=== PATIENT | female | born 1980 | race Caucasian/White ===

== ENCOUNTER 2016-08-31 11:34 | Emergency (ER) | payer OTHER ==
[2016-08-31 11:40] VITALS: BP 123/65; BMI 19.2
[2016-08-31 12:34] LABS: BILIRUBIN,URINE NEGATIVE (NEGATIVE); BLOOD/HEMOGLOBIN,URINE 5+ (NEGATIVE); GLUCOSE, URINE NEGATIVE (NEGATIVE); KETONES,URINE NEGATIVE (NEGATIVE); LEUKOCYTE ESTERASE ,URINE 1+ (NEGATIVE); NITRITES,URINE NEGATIVE (NEGATIVE); PROTEIN,URINE 2+ (NEGATIVE); UROBILINOGEN,URINE NORMAL (NORMAL)
--- NOTE | 2016-08-31 12:39 | DR.GENAD ---
HPI - PCP Primary Care Physician: nfd - HPI Comment HPI Comment: IN [place] ED YESTERDAY FOR LT FLANK AND BACK. EVALUATED. NO KIDNEY STONE. PAIN MAINLY LOWER BACK AND IS PERSISTANT. NO FEVER. - Complaint/Symptoms Chief Complaint Doctors Comments: BACK PAIN Chief Complaint:: patient was seen in [facility] saturday and saturday night in [place] and yesterday in [place] for left kidney pain that makes it hard for her to walk - Nurses notes reviewed Nurses Notes Review: Yes - Source History Provided: Patient - Mode of Arrival Mode of Arrival: Ambulatory - Timing Onset of Chief Complaint: 08/15/16 Came on: Suddenly - Duration Duration: Constant Duration: Days - Severity Severity: Moderate PMH - PMH Past Medical History: Yes Past Medical History: Kidney Stones Past Surgical History: Yes Surgical History: Appendectomy, Cholecystectomy, Hysterectomy Past Surgical History Comment: left eye removed - Family History History of Family Medical Conditions: Yes - Social History Does patient currently use any type of tobacco product: No Have you used tobacco products in the last 12 months: No Type of Tobacco Use: None Does any household member use tobacco: No Alcohol Use: None Do you use any recreational Drugs:: Yes (thc) Lives With: Family Lives Where: Home - infectious screening In the last 2 months have you had wt loss of >10#?: NO Have you had fever, night sweats or hemotysis?: No Have you traveled outside the country in the last 6 months?: No Isolation: Standard ROS - Review of Systems Constitutional: No Symptoms Reported Eyes: No Symptoms Reported ENTM: No Symptoms Reported Respiratoy: No Symptoms Reported Cardiovascular: No Symptoms Reported Gastrointestinal/Abdominal: No Symptoms Reported Genitourinary: No Symptoms Reported Neurological: No Symptoms Reported Musculoskeletal: Muscle Pain, Other (LEFT FLANK.) Integumentary: No Symptoms Reported Hematologic/Lymphatic: No Symptoms Reported Endocrine: No Symptoms Reported All Other Systems: Reviewed and Negative PE - Vital Signs Vitals: Temperature 98.6 F Pulse Rate 65 Respiratory Rate 16 Blood Pressure 123/65 O2 Sat by Pulse Oximetry 100 - General Limitations: No Limitations General Appearance: Alert - Head Head Exam: Normal Inspection - Eyes Eye exam: Normal Appearance - ENT ENT Exam: Normal External Ear Exam External Ear Exam: Normal External Inspection TM/Canal Exam: Bilateral Normal Nose Exam: Normal Nose Exam Mouth Exam: Normal Inspection Throat Exam: Normal Inspection - Neck Neck Exam: Normal Inspection - Chest Chest Inspection: Symmetric Chest Wall Rise - Respiratory Respiratory Exam: Normal Lung Sounds Bilat Respiratory Exam: Bilateral Clear to Auscultation - Cardiovascular Cardiovascular Exam: Regular Rate, Normal Rhythm, Normal Heart Sounds - Abdominal Exam Abdominal Exam: Normal Bowel Sounds, Soft. negative: Tenderness - Extremities Extremities Exam: Normal Inspection - Back Back Exam: Paraspinal Tenderness - Neurologic Neurological Exam: Alert, Oriented X3, CN II-XII Intact, Normal Gait, Reflexes Normal. negative: Motor Sensory Deficit MDM - Differential Diagnosis Differential Diagnosis: UTI, BACK STRAIN Course - Treatment Treatment: MED FOR PAIN IN ED. - Reevaluation 1st: Improved - Education/Counseling Education/Counseling: Patient, Education Educated On: Treatment, Diagnosis, Needs for Follow Up ROR - Labs Reviewed Laboratory Results Reviewed?: Yes Result Diagrams: 08/31/16 12:49 08/31/16 12:49 Laboratory: WBC 6.5 X10^3/uL (3.6-10.0) 08/31/16 12:49 RBC 4.28 X10^6/uL (3.5-5.4) 08/31/16 12:49 Hgb 13.2 g/dL (12.0-16.0) 08/31/16 12:49 Hct 39.5 % (36.0-47.0) 08/31/16 12:49 MCV 92.4 fL (80.0-100.0) 08/31/16 12:49 MCH 30.8 pg (27.0-34.0) 08/31/16 12:49 MCHC 33.4 g/dL (33.0-35.0) 08/31/16 12:49 RDW 13.0 % (11.6-16.5) 08/31/16 12:49 Plt Count 255 X10^3/uL (150.0-450.0) 08/31/16 12:49 MPV 8.2 fL (7.4-11.0) 08/31/16 12:49 Neut % 88.3 % (42.0-75.0) H 08/31/16 12:49 Lymph % 9.2 % (21.0-51.0) L 08/31/16 12:49 [place] % 2.2 % (0.0-13.0) 08/31/16 12:49 Eos % 0.1 % (0.9-2.9) L 08/31/16 12:49 Baso % 0.2 % (0.2-1.0) 08/31/16 12:49 Neut # 5.7 x10^3/uL (2.2-4.8) H 08/31/16 12:49 Lymph # 0.6 X10^3/uL (1.3-2.9) L 08/31/16 12:49 [place] # 0.1 x10^3/uL (0.3-0.8) L 08/31/16 12:49 Eos # 0.0 x10^3/uL (0.0-0.2) 08/31/16 12:49 Baso # 0.0 X10^3/uL (0.0-0.1) 08/31/16 12:49 Absolute Nucleated RBC 0.0 /100WBC 08/31/16 12:49 Sodium 142 mmol/L (136-145) 08/31/16 12:49 Corrected Sodium 142 mmol/L (136-145) 08/31/16 12:49 Potassium 3.7 mmol/L (3.5-5.1) 08/31/16 12:49 Chloride 103 mmol/L (98-107) 08/31/16 12:49 Carbon Dioxide 29.0 mmol/L (21-32) 08/31/16 12:49 BUN 17 mg/dL (7-18) 08/31/16 12:49 Creatinine 0.87 mg/dL (0.55-1.02) 08/31/16 12:49 Est GFR (MDRD) Af Amer > 60 (>60) 08/31/16 12:49 Est GFR (MDRD) Non-Af > 60 (>60) 08/31/16 12:49 Glucose 111 mg/dL (65-99) H 08/31/16 12:49 Calcium 9.0 mg/dL (8.5-10.1) 08/31/16 12:49 Corrected Calcium TNP 08/31/16 12:49 Total Bilirubin 0.30 mg/dL (0.2-1.0) 08/31/16 12:49 AST 16 Units/L (15-37) 08/31/16 12:49 ALT 19 Units/L (12-78) 08/31/16 12:49 Alkaline Phosphatase 68 Units/L (46-116) 08/31/16 12:49 Total Protein 8.4 g/dL (6.4-8.2) H 08/31/16 12:49 Albumin 4.5 g/dL (3.4-5.0) 08/31/16 12:49 Globulin 3.9 g/dL (2.5-4.5) 08/31/16 12:49 Albumin/Globulin Ratio 1.2 Ratio (1.1-2.1) 08/31/16 12:49 Specimen Type Clean catch urine 08/31/16 12:28 Urine Color Yellow (YELLOW) 08/31/16 12:28 Urine Appearance Hazy (CLEAR) 08/31/16 12:28 Urine pH 5.0 (5.0 - 8.0) 08/31/16 12:28 Ur Specific [place] 1.015 (1.000-1.030) 08/31/16 12:28 Urine Protein 2+ (NEGATIVE) 08/31/16 12:28 Urine Glucose (UA) Negative (NEGATIVE) 08/31/16 12:28 Urine Ketones Negative (NEGATIVE) 08/31/16 12:28 Urine Occult Blood 5+ (NEGATIVE) 08/31/16 12:28 Urine Nitrite Negative (NEGATIVE) 08/31/16 12:28 Urine Bilirubin Negative (NEGATIVE) 08/31/16 12:28 Urine Urobilinogen Normal (NORMAL) 08/31/16 12:28 Ur Leukocyte Esterase 1+ (NEGATIVE) 08/31/16 12:28 Urine RBC 25-50 /HPF (NEGATIVE) 08/31/16 12:28 Urine WBC 0-5 /HPF (NEGATIVE) 08/31/16 12:28 Ur Squamous Epith Cells Moderate /HPF (NEGATIVE) 08/31/16 12:28 Urine Bacteria Trace /HPF (NEGATIVE) 08/31/16 12:28 Urine Mucus Few /HPF (NEGATIVE) 08/31/16 12:28 Ur Culture Indicated? No/not indicated 08/31/16 12:28 - Diagnosis Discharge Problem: Back pain Qualifiers: Back pain location: low back pain Chronicity: acute Back pain laterality: unspecified Sciatica presence: without sciatica Qualified Code(s): M54.5 - Low back pain - Discharge Plan Disposition: 01 HOME, SELF-CARE Condition: Stable - Follow ups/Referrals Follow ups/Referrals: NFD,None [Primary Care Provider] - 3 days - Instructions Instructions: Back Pain, Adult, [id number] Additional Instructions: RETURN TO ED IF WORSE.
[2016-08-31 12:42] LABS: APPEARANCE,URINE HAZY (CLEAR); COLOR,URINE YELLOW (YELLOW)
[2016-08-31 12:43] LABS: BACTERIA,URINE TRACE /HPF (NEGATIVE); MUCUS,URINE FEW /HPF (NEGATIVE); RBC,URINE 25-50 /HPF (NEGATIVE); SQUAMOUS EPITHELIAL CELL,UR MODERATE /HPF (NEGATIVE)
[2016-08-31] MEDS ORDERED: DEMEROL INJ IM ONE (12:46)
[2016-08-31] MEDS ORDERED: PHENERGAN INJ 25 MG IM ONE (12:48)
[2016-08-31 13:04] LABS: BASOPHILS % (AUTO) 0.2 % (0.2-1.0); EOSINOPHILS % (AUTO) 0.1 % (0.9-2.9); HEMATOCRIT 39.5 % (36.0-47.0); HEMOGLOBIN 13.2 g/dL (12.0-16.0); LYMPHOCYTES # (AUTO) 0.6 X10^3/uL (1.3-2.9); LYMPHOCYTES % (AUTO) 9.2 % (21.0-51.0); MEAN CORPUSCULAR HEMOGLOBIN 30.8 pg (27.0-34.0); MEAN CORPUSCULAR HGB CONC 33.4 g/dL (33.0-35.0); MEAN CORPUSCULAR VOLUME 92.4 fL (80.0-100.0); MEAN PLATELET VOLUME 8.2 fL (7.4-11.0); MONOCYTES # (AUTO) 0.1 x10^3/uL (0.3-0.8); MONOCYTES % (AUTO) 2.2 % (0.0-13.0); NEUTROPHILS # (AUTO) 5.7 x10^3/uL (2.2-4.8); NEUTROPHILS % (AUTO) 88.3 % (42.0-75.0); PLATELET COUNT 255 X10^3/uL (150.0-450.0); RED BLOOD COUNT 4.28 X10^6/uL (3.5-5.4); WHITE BLOOD COUNT 6.5 X10^3/uL (3.6-10.0)
[2016-08-31] MEDS ORDERED: PHENERGAN INJ 25 MG ONE (13:06)
[2016-08-31] MEDS ORDERED: DEMEROL INJ ONE ×2 (13:07→13:09)
[2016-08-31 13:14] LABS: ALANINE AMINOTRANSFERASE 19 Units/L (12-78); ALBUMIN 4.5 g/dL (3.4-5.0); ALKALINE PHOSPHATASE 68 Units/L (46-116); ASPARTATE AMINO TRANSFERASE 16 Units/L (15-37); BLOOD UREA NITROGEN 17 mg/dL (7-18); CHLORIDE 103 mmol/L (98-107); COR NA(FOR HYPERGLY) 142 mmol/L (136-145); CREATININE 0.87 mg/dL (0.55-1.02); GLUCOSE 111 mg/dL (65-99); SODIUM 142 mmol/L (136-145); TOTAL PROTEIN 8.4 g/dL (6.4-8.2); eGFR BLACK RACES > 60 (>60); eGFR NON BLACK RACES > 60 (>60)
== END 2016-08-31 15:09 | disposition home or self-care (01) ==
LOC: ER 12:07
DX: M54.5 Low back pain (principal)
CPT/HCPCS: 36415; 80053; 81001; 85025; 96372; 99282; J2175; J2550

== ENCOUNTER 2016-09-07 10:32 | Emergency (ER) | payer OTHER ==
[2016-09-07 10:43] VITALS: BP 131/86; BMI 19.2
--- NOTE | 2016-09-07 11:04 | DR.FBACK ---
HPI - Time Seen Time seen: 11:05 - PCP Primary Care Physician: YORDY - HPI Comment HPI Comment: PATIENT HAVE LEFT SIDE PAIN FOR FEW WEEKS. EVALUATED SEVERAL TIMES FOR SAME. NO ESTABLISH CAUSE. HISTORY MIGRAINE TERRELL. HAVING SEVERE MIGRAINE TODAY. CURRENTLY ON MED FOR UTI. - Complaint Chief Complaint Doctor Comments: SEVERE HEADACHE, MIGRAINE AND PERSISTENT LEFT SIDE PAIN. Chief Complaint:: PT WAS SEEN IN ER LAST SATURDAY FOR A UTI, AND SHE WAS SEEN AT [facility] LAST SATURDAY AND SHE WAS CALLED BACK FOR POSITIVE CULTURES, AND SHE WAS GIVEN MACROBID AND SHE HAS TAKEN FOR 2 DAYES AND SHE " IT IS NOT WORKING". Self Treatment fo Chief Complaint: PT HAS AN APPT WITH DR. FINNEY ON 10/16/16 - Reviewed Nurses Notes Review: Yes - Source History Provided: Patient - Mode of Arrival Mode of Arrival: Ambulatory - Timing Onset of Chief Complaint: 09/04/16 - Duration Duration: Constant Duration: Days - Location Back Pain Location: Lower Radiation To: None - Severity Severity: Moderate - Quality Quality: Sharp - Context Onset: Spontaneous Circumstance: Spontaneous History of: None - Modifying Factors Worsened By: None - Associated Signs and Symptoms Back Pain Symptoms: Nausea Numbness: None Weakness: None PMH - PMH Past Medical History: Yes Past Medical History: Kidney Stones Past Medical History Comment: IBS, EMDOMETRIOSIS Past Surgical History: Yes Surgical History: Appendectomy, Cholecystectomy, Hysterectomy - Family History History of Family Medical Conditions: Yes Family Medical History Comment: COPD, ARTHRITIS, - Social History Does patient currently use any type of tobacco product: No Have you used tobacco products in the last 12 months: No Type of Tobacco Use: None Alcohol Use: None Do you use any recreational Drugs:: Yes (THC) Lives With: Family Lives Where: Home - infectious screening In the last 2 months have you had wt loss of >10#?: NO Have you had fever, night sweats or hemotysis?: No Have you traveled outside the country in the last 6 months?: No Isolation: Standard ROS - Review of Systems Constitutional: No Symptoms Reported Eyes: No Symptoms Reported ENTM: negative: Ear Pain, Nose Discharge, Nose Congestion, Throat Pain Respiratoy: No Symptoms Reported Cardiovascular: No Symptoms Reported Gastrointestinal/Abdominal: Nausea Genitourinary: No Symptoms Reported. negative: Dysuria, Frequency, Hematuria Neurological: No Symptoms Reported Musculoskeletal: Muscle Pain, Other (FLANK PAIN) Integumentary: No Symptoms Reported Hematologic/Lymphatic: No Symptoms Reported Endocrine: No Symptoms Reported All Other Systems: Reviewed and Negative PE - Vitals Vital Signs: Temp Pulse Resp BP Pulse Ox 09/07/16 10:37 98.2 F 102 H 22 131/86 97 08/31/16 11:36 123/65 - General Limitations: No Limitations General Appearance: Alert - Head Head Exam: Normal Inspection - Eyes Eye exam: Normal Appearance - ENT ENT Exam: Normal External Ear Exam - Chest Chest Inspection: Symmetric Chest Wall Rise - Respiratory Respiratory Exam: Normal Lung Sounds Bilat Respiratory Exam: Bilateral Clear to Auscultation - Cardiovascular Cardiovascular Exam: Regular Rate, Normal Rhythm, Normal Heart Sounds - Abdominal Exam Abdominal Exam: Normal Bowel Sounds, Soft. negative: Tenderness - Genitourinary External Exam: Female: Normal External Exam : Speculum Exam (Female): Normal Speculum Exam : Bimanual Exam (female): Normal Bimanual exam - Extremities Extremities Exam: Normal Inspection - Back Back Exam: Normal Inspection - Neurological Neurological Exam: Alert, Oriented X3 - Psychiatric Psychiatric Exam: Normal Affect, Normal Mood - Skin Skin Exam: Normal Color MDM - Additional Information Additional Information Obtained From: Family - Differential Diagnosis Differential Diagnosis: Bowel Obstruction, Musculoskeletal Pain, Strain, Urinary Obstruction (MIGRAINE HEADACHE), Urolithiasis Course - Treatment Treatment: SEE ORDERS - Education/Counseling Education/Counseling: Patient, Family, Education Educated On: Treatment, Diagnosis, Needs for Follow Up ROR - Labs Reviewed Laboratory Results Reviewed?: Yes Result Diagrams: 09/07/16 11:55 09/07/16 11:55 Laboratory: WBC 4.7 X10^3/uL (3.6-10.0) 09/07/16 11:55 RBC 4.48 X10^6/uL (3.5-5.4) 09/07/16 11:55 Hgb 13.7 g/dL (12.0-16.0) 09/07/16 11:55 Hct 41.0 % (36.0-47.0) 09/07/16 11:55 MCV 91.7 fL (80.0-100.0) 09/07/16 11:55 MCH 30.5 pg (27.0-34.0) 09/07/16 11:55 MCHC 33.3 g/dL (33.0-35.0) 09/07/16 11:55 RDW 13.5 % (11.6-16.5) 09/07/16 11:55 Plt Count 249 X10^3/uL (150.0-450.0) 09/07/16 11:55 Plt Count Comment Adequate (ADEQUATE) 09/07/16 11:55 MPV 8.0 fL (7.4-11.0) 09/07/16 11:55 Neut % 58.6 % (42.0-75.0) 09/07/16 11:55 Lymph % 25.1 % (21.0-51.0) 09/07/16 11:55 [place] % 10.9 % (0.0-13.0) 09/07/16 11:55 Eos % 4.1 % (0.9-2.9) H 09/07/16 11:55 Baso % 1.3 % (0.2-1.0) H 09/07/16 11:55 Neut # 2.8 x10^3/uL (2.2-4.8) 09/07/16 11:55 Lymph # 1.2 X10^3/uL (1.3-2.9) L 09/07/16 11:55 [place] # 0.5 x10^3/uL (0.3-0.8) 09/07/16 11:55 Eos # 0.2 x10^3/uL (0.0-0.2) 09/07/16 11:55 Baso # 0.1 X10^3/uL (0.0-0.1) 09/07/16 11:55 Absolute Nucleated RBC 0.1 /100WBC 09/07/16 11:55 Total Counted 100 09/07/16 11:55 Neutrophils % (Manual) 52 % (39-76) 09/07/16 11:55 Lymphocytes % (Manual) 36 % (13-43) 09/07/16 11:55 Monocytes % (Manual) 12 % (4-9) H 09/07/16 11:55 Plt Morphology Comment Normal (NORMAL) 09/07/16 11:55 RBC Morphology Normal (NORMAL) 09/07/16 11:55 Sodium 141 mmol/L (136-145) 09/07/16 11:55 Corrected Sodium TNP 09/07/16 11:55 Potassium 3.9 mmol/L (3.5-5.1) 09/07/16 11:55 Chloride 102 mmol/L (98-107) 09/07/16 11:55 Carbon Dioxide 34.4 mmol/L (21-32) H 09/07/16 11:55 BUN 11 mg/dL (7-18) 09/07/16 11:55 Creatinine 0.89 mg/dL (0.55-1.02) 09/07/16 11:55 Est GFR (MDRD) Af Amer > 60 (>60) 09/07/16 11:55 Est GFR (MDRD) Non-Af > 60 (>60) 09/07/16 11:55 Glucose 102 mg/dL (65-99) H 09/07/16 11:55 Calcium 9.3 mg/dL (8.5-10.1) 09/07/16 11:55 Corrected Calcium TNP 09/07/16 11:55 Total Bilirubin 0.30 mg/dL (0.2-1.0) 09/07/16 11:55 AST 21 Units/L (15-37) 09/07/16 11:55 ALT 41 Units/L (12-78) 09/07/16 11:55 Alkaline Phosphatase 64 Units/L (46-116) 09/07/16 11:55 Total Protein 7.9 g/dL (6.4-8.2) 09/07/16 11:55 Albumin 4.3 g/dL (3.4-5.0) 09/07/16 11:55 Globulin 3.6 g/dL (2.5-4.5) 09/07/16 11:55 Albumin/Globulin Ratio 1.2 Ratio (1.1-2.1) 09/07/16 11:55 Specimen Type Clean catch urine 09/07/16 11:22 Urine Color Pale yellow (YELLOW) 09/07/16 11:22 Urine Appearance Clear (CLEAR) 09/07/16 11:22 Urine pH 7.0 (5.0 - 8.0) 09/07/16 11:22 Ur Specific [place] 1.005 (1.000-1.030) 09/07/16 11:22 Urine Protein Negative (NEGATIVE) 09/07/16 11:22 Urine Glucose (UA) Negative (NEGATIVE) 09/07/16 11:22 Urine Ketones Negative (NEGATIVE) 09/07/16 11:22 Urine Occult Blood Negative (NEGATIVE) 09/07/16 11:22 Urine Nitrite Negative (NEGATIVE) 09/07/16 11:22 Urine Bilirubin Negative (NEGATIVE) 09/07/16 11:22 Urine Urobilinogen Normal (NORMAL) 09/07/16 11:22 Ur Leukocyte Esterase Negative (NEGATIVE) 09/07/16 11:22 Urine RBC Negative /HPF (NEGATIVE) 09/07/16 11:22 Urine WBC Rare /HPF (NEGATIVE) 09/07/16 11:22 Ur Squamous Epith Cells Rare /HPF (NEGATIVE) 09/07/16 11:22 Urine Bacteria Negative /HPF (NEGATIVE) 09/07/16 11:22 Ur Culture Indicated? No/not indicated 09/07/16 11:22 - XRAY XRAY Interpreted by: Radiologist XRAY Findings: REPORT DISCUSS WITH PATIENT. - Diagnosis Discharge Problem: UTI (lower urinary tract infection), Flank pain Migraine headache Qualifiers: Migraine type: without aura Status migrainosus presence: without status migrainosus Intractability: intractable Qualified Code(s): G43.019 - Migraine without aura, intractable, without status migrainosus - Discharge Plan Disposition: 01 HOME, SELF-CARE Condition: Stable Prescriptions: Uxpyrcljnx-Bdtlifwrkyjiu-Faqho [Fioricet 50-300-40 mg] 1 cap PO Q8H PRN #30 cap PRN Reason: Migraine Headache Ondansetron HCl [Zofran Tab 4 mg] 4 mg PO Q8H PRN #12 tab PRN Reason: Nausea/Vomiting - Follow ups/Referrals Follow ups/Referrals: NFD,None [Primary Care Provider] - 3 days ELEN GOETZ [STAFF PHYSICIAN] - 3 days - Instructions Instructions: Flank Pain, Migraine Headache Additional Instructions: RETURN TO ED IF WORSE.
[2016-09-07] MEDS ORDERED: ZOFRAN INJ 4 MG VIAL IVP ONE (11:35)
[2016-09-07] MEDS ORDERED: MORPHINE SULFATE INJ 4 MG IVP ONE (11:35)
[2016-09-07] MEDS ORDERED: MORPHINE SULFATE INJ 4 MG ONE (11:38)
[2016-09-07] MEDS ORDERED: ZOFRAN INJ 4 MG VIAL ONE (11:38)
[2016-09-07 11:41] LABS: BILIRUBIN,URINE NEGATIVE (NEGATIVE); BLOOD/HEMOGLOBIN,URINE NEGATIVE (NEGATIVE); GLUCOSE, URINE NEGATIVE (NEGATIVE); KETONES,URINE NEGATIVE (NEGATIVE); LEUKOCYTE ESTERASE ,URINE NEGATIVE (NEGATIVE); NITRITES,URINE NEGATIVE (NEGATIVE); PROTEIN,URINE NEGATIVE (NEGATIVE); UROBILINOGEN,URINE NORMAL (NORMAL)
[2016-09-07 11:52] LABS: APPEARANCE,URINE CLEAR (CLEAR); BACTERIA,URINE NEGATIVE /HPF (NEGATIVE); COLOR,URINE PALE YELLOW (YELLOW); RBC,URINE NEGATIVE /HPF (NEGATIVE); SQUAMOUS EPITHELIAL CELL,UR RARE /HPF (NEGATIVE)
--- NOTE | 2016-09-07 12:01 | CT ---
HISTORY: Left flank pain and low back pain for 2 weeks Study: CT abdomen and pelvis without contrast Comparison: None Technique: Multiple axial images of the abdomen and pelvis were obtained from the lung bases to the pubic symph ysis without the administration of IV contrast. Sagittal and coronal reformations were provided. Findings: The visualized portions of the lung bases are unremarkable. The liver, spleen, pancreas, kidneys, a nd adrenal glands are unremarkable in their CT appearance. The gallbladder and appendix in uterus ar e surgically absent. There is no biliary dilatation. There is no abnormal adnexal mass.. No signifi cant mesenteric lymphadenopathy or stranding can be observed. No free fluid or free air is seen wit hin the abdomen. No bowel wall thickening or bowel dilatation is present. The colon is unremarkabl e. Specifically, there is no diverticulosis noted within the sigmoid colon. The urinary bladder is grossly unremarkable. The bony structures are grossly intact. IMPRESSION: 1. Negative CT of the abdomen and pelvis. Reported By:
[2016-09-07 12:04] LABS: BASOPHILS # (AUTO) 0.1 X10^3/uL (0.0-0.1); BASOPHILS % (AUTO) 1.3 % (0.2-1.0); EOSINOPHILS # (AUTO) 0.2 x10^3/uL (0.0-0.2); EOSINOPHILS % (AUTO) 4.1 % (0.9-2.9); HEMOGLOBIN 13.7 g/dL (12.0-16.0); LYMPHOCYTES # (AUTO) 1.2 X10^3/uL (1.3-2.9); LYMPHOCYTES % (AUTO) 25.1 % (21.0-51.0); MEAN CORPUSCULAR HEMOGLOBIN 30.5 pg (27.0-34.0); MEAN CORPUSCULAR HGB CONC 33.3 g/dL (33.0-35.0); MEAN CORPUSCULAR VOLUME 91.7 fL (80.0-100.0); MONOCYTES # (AUTO) 0.5 x10^3/uL (0.3-0.8); MONOCYTES % (AUTO) 10.9 % (0.0-13.0); NEUTROPHILS # (AUTO) 2.8 x10^3/uL (2.2-4.8); NEUTROPHILS % (AUTO) 58.6 % (42.0-75.0); PLATELET COUNT 249 X10^3/uL (150.0-450.0); RED BLOOD COUNT 4.48 X10^6/uL (3.5-5.4); RED CELL DISTRIBUTION WIDTH 13.5 % (11.6-16.5); WHITE BLOOD COUNT 4.7 X10^3/uL (3.6-10.0)
[2016-09-07 12:21] LABS: PLATELET MORPHOLOGY COMMENT NORMAL (NORMAL)
[2016-09-07 12:22] LABS: ALANINE AMINOTRANSFERASE 41 Units/L (12-78); ALBUMIN 4.3 g/dL (3.4-5.0); ALKALINE PHOSPHATASE 64 Units/L (46-116); ASPARTATE AMINO TRANSFERASE 21 Units/L (15-37); BLOOD UREA NITROGEN 11 mg/dL (7-18); CALCIUM 9.3 mg/dL (8.5-10.1); CARBON DIOXIDE 34.4 mmol/L (21-32); CHLORIDE 102 mmol/L (98-107); CREATININE 0.89 mg/dL (0.55-1.02); GLUCOSE 102 mg/dL (65-99); SODIUM 141 mmol/L (136-145); TOTAL PROTEIN 7.9 g/dL (6.4-8.2); eGFR BLACK RACES > 60 (>60); eGFR NON BLACK RACES > 60 (>60)
== END 2016-09-07 12:33 | disposition home or self-care (01) ==
LOC: ER 10:49
DX: N39.0 Urinary tract infection, site not specified (principal); R10.84 Generalized abdominal pain; G43.019 Migraine without aura, intractable, without status migrainosus
CPT/HCPCS: 36415; 74176; 80053; 81001; 85025; 96372; 99283; J2270; J2405